=== PATIENT | female | born 1990 | race African-American/Black ===

== ENCOUNTER 2016-12-06 14:16 | Emergency (ER) | payer SELFPAY ==
--- OUTSIDE RECORDS SUMMARY | 2016-12-07 21:20 | XMS | Continuity of Care Document ---
:1990 Author Organization [facility] Care Team Providers Name Role Phone JACKLYN DOMÍNGUEZ Primary Care Physician Unavailable Insurance Providers Payer Name Policy Number Subscriber Name Relationship MED[place]ID/[place] [facility] PLAN [id number] JANINE SMITH SELF/SAME PATIENT Advance Directives Directive Response Recorded Date/Time Advance Directive? N 06/29/15 5:51pm Living Will? N 06/29/15 5:51pm Health Care Proxy? N 06/29/15 5:51pm Healthcare Power of Oracle Fusion Developer? N 06/29/15 5:51pm Is the patient an Organ Donor? N 06/29/15 5:51pm Chief Complaint and Reason for Visit Reason for Visit THROAT HURTS,FEVER,HEADACHE Problems Active Medical Problems Problem Onset Date Recorded Date Status Headache Unknown 12/27/13 Active Influenza A Unknown 06/29/15 Active Fever Unknown 06/29/15 Active Medications Current Home Medications Medication Dose Units Route Directions Days/Qty Instructions Start Date ACETAMINOPHEN 1 TAB PO THREE TIME A 12/08/13 W/CODEINE #3 DAY(;;) (TYLENOL #3) 300 PRN pain MG/30 MG TAB Apap 1 CAP PO THREE TIME A 12/08/13 325MG-Isomethepten DAY(;;) e 65MG-Dichloral PRN start of 100MG (Midrin) 1 headache CAP CAP BENZONATATE 100 MG PO THREE TIMES 06/29/15 (TESSALON PERLES) DAILY NEEDED 100 MG CAP PRN COUGH Butalbital-Acetami 1 CAP PO EVERY SIX HOURS 5 Days NEEDED FOR nophen-Caffe HEADACHE (FIORICET 50-300-40 MG CAPSULE) 1 CAP CAP Ondansetron ODT 4 MG PO THREE TIME A 12/08/13 (ZOFRAN 4 MG ODT) DAY(;;) 4 MG TAB PRN nausea Ondansetron ODT 4 MG PO EVERY FOUR 10 06/29/15 (ZOFRAN 4 MG ODT) HOURS NEEDED 4 MG TAB PRN NAUSEA/VOMITING Vit W/ Ferrous Fumara ( Vit) 1 TAB TAB Sulfamethoxazole-T 1 TAB OR TWICE A DAY 10 Days 10/20/13 rimethoprim (899; 2099) (BACTRIM SS 400 MG/80 MG TAB) 400 MG/80 MG TAB [cerumenex otic] 3-4 DROP OT THREE TIME A 10 affected ear 03/26/14 MARIO ALBERTO DAY(;;) Past Home Medications Medication Directions Ordered Status No Current Medications (No Current Medications) . ., Unknown Discontinued Social History Problem Response Recorded Date Recreational drugs? N 06/29/15 Alcohol? N 06/29/15 Query Response Start Date Stop Date Smoking Status: Never Smoker Hospital Discharge Instructions No hospital discharge instructions. Plan of Care Discharge Date 06/29/15 Disposition HOME/SELF CARE Condition at Discharge STABLE Instructions/Education Provided DI for Influenza -- Adult Forms Provided Discharge Form Prescriptions See Medications Section Referrals JACKLYN DOMÍNGUEZ - Functional Status No functional status results. Allergies, Adverse Reactions, Alerts No known allergies. Immunizations No Known History of Immunizations. Vital Signs Vital Reading Collection Date/Time Result Blood Pressure 06/29/15 7:10pm 132/76 Patient Temperature 06/29/15 7:10pm 99.0 Temperature Source 06/29/15 5:47pm Oral Pulse Rate 06/29/15 7:10pm 85 Bedside Pulse Oximetry 06/29/15 7:10pm 98 Height 06/29/15 5:47pm 162.56 cm Height 06/29/15 5:47pm 5 ft 4.00 in Weight 06/29/15 5:47pm 73.028 kg Weight 06/29/15 5:47pm 161 lb 0.00 oz Body Mass Index 06/29/15 5:47pm 27.6 Results Laboratory Results Test Name Result Units Flags Reference Collection Result Comments Date/Time Date/Time Group A NEGATIVE NEGATIVE 06/29/15 06/29/15 Negative screens will be confirmed by culture. Please see Streptococcus 6:18pm 6:41pm separate microbiology report for these results. Screen Influenza Type A NEGATIVE NEGATIVE 06/29/15 06/29/15 A negative test result should be interpreted as a Antigen 6:18pm 6:41pm presumptive negative for the presense of influenza A antigen. Negative results can occur from inadequate sample collection or levels of antigen which fall below the limits of detection of the test. Influenza Type B NEGATIVE NEGATIVE 06/29/15 06/29/15 Antigen 6:18pm 6:41pm Procedures No Known History of Procedures. Encounters Encounter Location Arrival/Admit Date Discharge/Depart Date Attending Provider Departed [place] 06/29/15 5:28pm 06/29/15 7:00pm [facility], [facility] Encounter Diagnosis Influenza due to influenza virus, type A, human Fever
--- OUTSIDE RECORDS SUMMARY | 2016-12-07 21:20 | XMS | Continuity of Care Document ---
:1990 Author Organization [facility] Care Team Providers Name Role Phone EUSEBIAJUNIOR JACKLYN Primary Care Physician Unavailable Insurance Providers Payer Name Policy Number Subscriber Name Relationship MEDICAID PENDING [id number] JANINE SMITH SELF/SAME PATIENT [employer] PENDING JANINE SMITH SELF/SAME PATIENT Advance Directives Directive Response Recorded Date/Time Advance Directive? N 09/22/15 2:54pm Living Will? N 09/22/15 2:54pm Health Care Proxy? N 09/22/15 2:54pm Healthcare Power of Bar Roller? N 09/22/15 2:54pm Is the patient an Organ Donor? N 09/22/15 2:54pm Chief Complaint and Reason for Visit Reason for Visit VOMITING X 2 DAYS Problems Active Medical Problems Problem Onset Date Recorded Date Status Headache Unknown 12/27/13 Active Influenza A Unknown 06/29/15 Active Fever Unknown 06/29/15 Active Nausea vomiting and diarrhea Unknown 09/22/15 Active Medications Current Home Medications Medication Dose Units Route Directions Days/Qty Instructions Start Date ACETAMINOPHEN 1 TAB PO THREE TIME A 12/08/13 W/CODEINE #3 DAY() (TYLENOL #3) 300 PRN pain MG/30 MG TAB Apap 1 CAP PO THREE TIME A 12/08/13 325MG-Isomethepten DAY() e 65MG-Dichloral PRN start of 100MG (MIDRIN 325 headache MG/65 MG/100 MG CAP) 1 CAP CAP BENZONATATE 100 MG PO THREE TIMES 06/29/15 (TESSALON PERLES) DAILY NEEDED 100 MG CAP PRN COUGH Butalbital-Acetami 1 CAP PO EVERY SIX HOURS 5 Days NEEDED FOR nophen-Caffe HEADACHE (FIORICET 50-300-40 MG CAPSULE) 1 CAP CAP Ondansetron ODT 4 MG PO THREE TIME A 10 12/08/13 (ZOFRAN 4 MG ODT) DAY(;;) 4 MG TAB PRN nausea Ondansetron ODT 4 MG PO EVERY FOUR 10 06/29/15 (ZOFRAN 4 MG ODT) HOURS NEEDED 4 MG TAB PRN NAUSEA/VOMITING Ondansetron ODT 4 MG PO EVERY SIX HOURS 12 09/22/15 (ZOFRAN 4 MG ODT) NEEDED PRN 4 MG TAB NAUSEA/VOMITING Vit W/ Ferrous Fumara ( Vit) 1 TAB TAB Sulfamethoxazole-T 1 TAB OR TWICE A DAY 10 Days 10/20/13 rimethoprim (899; 2099) (BACTRIM SS 400 MG/80 MG TAB) 400 MG/80 MG TAB [cerumenex otic] 3-4 DROP OT THREE TIME A 10 affected ear 03/26/14 MARIO ALBERTO DAY(;;) Past Home Medications Medication Directions Ordered Status No Current Medications (No Current Medications) 1 Unknown Discontinued Each . ., Social History Problem Response Recorded Date Recreational drugs? N 09/22/15 Alcohol? N 09/22/15 Query Response Start Date Stop Date Smoking Status: Never Smoker Hospital Discharge Instructions No hospital discharge instructions. Plan of Care Discharge Date 09/22/15 Disposition HOME/SELF CARE Condition at Discharge STABLE Instructions/Education Provided Diarrhea Nausea and Vomiting-Adult Forms Provided Discharge Form Prescriptions See Medications Section Referrals [facility] - Additional Instructions/Education FOLLOW UP WITH PRIMARY CARE PHYSICIAN 1-2 DAYS, RETURN TO ER IF SYMPTOMS WORSEN OR CHANGE. Functional Status No functional status results. Allergies, Adverse Reactions, Alerts No known allergies. Immunizations No Known History of Immunizations. Vital Signs Vital Reading Collection Date/Time Result Blood Pressure 09/22/15 4:01pm 133/76 Patient Temperature 09/22/15 4:01pm 98.1 Temperature Source 09/22/15 2:04pm Tympanic Respiratory Rate 09/22/15 3:28pm 16 Pulse Rate 09/22/15 4:01pm 51 Bedside Pulse Oximetry 09/22/15 4:01pm 98 Height 09/22/15 2:04pm 162.56 cm Height 09/22/15 2:04pm 5 ft 4.00 in Weight 09/22/15 2:04pm 70.307 kg Weight 09/22/15 2:04pm 155 lb 0.00 oz Body Mass Index 09/22/15 2:04pm 26.6 Results Laboratory Results Test Name Result Units Flags Reference Collection Result Comments Date/Time Date/Time Urine HCG, NEGATIVE NEGATIVE 09/22/15 09/22/15 If a negative result is obtained but is Qualitative 2:19pm 2:32pm suspected, hCG levels may be too low or urine may be too dilute for detection. Another specimen should be collected after 48-72 hours and tested. If waiting is not medically advisable, the test result should be confirmed with a quantitative hCG test. Urine Color STRAW YELLOW 09/22/15 09/22/15 2:19pm 2:31pm Urine CLEAR CLEAR 09/22/15 09/22/15 Appearance 2:19pm 2:31pm Urine Glucose NEGATIVE mg/dL NEGATIVE 09/22/15 09/22/15 2:19pm 2:31pm Urine Bilirubin NEGATIVE NEGATIVE 09/22/15 09/22/15 2:19pm 2:31pm Urine Ketones NEGATIVE NEGATIVE 09/22/15 09/22/15 2:19pm 2:31pm Urine Specific >=1.030 1.002-1.030 09/22/15 09/22/15 [place] 2:19pm 2:31pm Urine Blood LARGE A NEGATIVE 09/22/15 09/22/15 2:19pm 2:31pm Urine pH 6.0 4.5-8.0 09/22/15 09/22/15 2:19pm 2:31pm Urine Protein NEGATIVE mg/dL NEGATIVE 09/22/15 09/22/15 2:19pm 2:31pm Urine 0.2 E.U./dL 0.2 09/22/15 09/22/15 Urobilinogen 2:19pm 2:31pm Urine Nitrite NEGATIVE NEGATIVE 09/22/15 09/22/15 2:19pm 2:31pm Urine Leukocyte SMALL A NEGATIVE 09/22/15 09/22/15 Esterase 2:19pm 2:31pm Urine YES NO 09/22/15 09/22/15 Microscopic 2:19pm 2:31pm Indicated Urine RBC 6-14 /hpf A 0-2 09/22/15 09/22/15 2:19pm 2:36pm Urine WBC 3-5 /hpf A 0-2 09/22/15 09/22/15 2:19pm 2:36pm Urine 6-14 /hpf A 0-2 09/22/15 09/22/15 Epithelial 2:19pm 2:36pm Cells Urine Bacteria FEW /hpf NEG 09/22/15 09/22/15 2:19pm 2:36pm Urine Mucus 2+ /lpf A NEG 09/22/15 09/22/15 2:19pm 2:36pm Group A NEGATIVE NEGATIVE 06/29/15 06/29/15 Negative screens will be confirmed by culture. Please see Streptococcus 6:18pm 6:41pm separate microbiology report for these results. Screen Influenza Type NEGATIVE NEGATIVE 06/29/15 06/29/15 A negative test result should be interpreted as a A Antigen 6:18pm 6:41pm presumptive negative for the presense of influenza A antigen. Negative results can occur from inadequate sample collection or levels of antigen which fall below the limits of detection of the test. Influenza Type NEGATIVE NEGATIVE 06/29/15 06/29/15 B Antigen 6:18pm 6:41pm Procedures No Known History of Procedures. Encounters Encounter Location Arrival/Admit Date Discharge/Depart Date Attending Provider Departed [facility] 09/22/15 1:58pm 09/22/15 4:01pm NATALYA RIVERA [facility] Departed [facility] 06/29/15 5:28pm 06/29/15 7:00pm [facility] Encounter Diagnosis Nausea, vomiting, and diarrhea
== END 2016-12-06 15:41 | disposition home or self-care (01) ==
LOC: ERS 14:16
DX: S16.1XXA Strain of muscle, fascia and tendon at neck level, initial encounter (principal); V44.5XXA Car driver injured in collision with heavy transport vehicle or bus in traffic accident, initial encounter
CPT/HCPCS: 99283